=== PATIENT | female | born 2000 | race Caucasian/White ===

== ENCOUNTER 2021-09-20 20:46 | Emergency (ER) | payer SELFPAY ==
[2021-09-20] MEDS ORDERED: methylPREDNISolone Sodium Succinate 125 MG/2 ML SDV IVPUSH ONE (20:57)
[2021-09-20] MEDS ORDERED: Sodium Chloride 0.9% 10 ML Syringe FLUSH PRN (20:57)
[2021-09-20] MEDS ORDERED: diphenhydrAMINE 50 MG/ML SDV IVPUSH ONE (20:57)
[2021-09-20] MEDS ORDERED: Famotidine 20 MG/2 ML SDV IVPUSH ONE (20:57)
--- NOTE | 2021-09-20 21:08 | EDM.PDOC ---
ED HPI GENERAL MEDICAL PROBLEM - General Chief Complaint: Skin Complaint Stated Complaint: SKIN COMPLAINT/HIVES ALL OVER Time Seen by Provider: 09/20/21 20:56 Source of Information: Reports: Patient, RN Notes Reviewed History Limitations: Reports: No Limitations - History of Present Illness INITIAL COMMENTS - FREE TEXT/NARRATIVE: Patient is a 21-year-old female who presents to the ER for evaluation of her hives. Patient states that she has been having issues with this for quite some time, but notes these hives have started about a week and a half ago, and have generally worsened. These are pretty much all over her body surface, not in 1 specific area she notes them to be up on her neck, body, arms, legs. She has not changed any soaps, detergents, perfumes, lotions or otherwise she has not tried any foods that are new to her. States that she has had allergy testing in the past and everything was inconclusive or negative. Patient has been using Tylenol and ibuprofen and cetirizine for management. States that it seems to help a little bit but does not really make them go away. She states when she was at work today, she her throat felt a little bit scratchy, and she was concerned that it might start swelling shot so she comes to the ER for evaluation. Patient is in no respiratory distress at the time of triage and can answer all questions appropriately. Generalized Pain Score (Numeric/FACES): 7 - Related Data Allergies Allergy/AdvReac Type Severity Reaction Status Date / Time No Known Allergies Allergy Verified 09/20/21 20:57 Home Meds: Home Meds predniSONE 20 mg PO ASDIRECTED #15 tab 09/20/21 [Rx] Past Medical History Dermatologic History: Reports: Other (See Below) Other Dermatologic History: intermittent hives- has had allergy testing with negative/inconclusive results. - Infectious Disease History Infectious Disease History: Reports: Novel Coronavirus Social & Family History - Tobacco Use Tobacco Use Status *Q: Current Every Day Tobacco User Years of Tobacco use: 5 Packs/Tins Daily: 1 - Caffeine Use Caffeine Use: Reports: Energy Drinks - Recreational Drug Use Recreational Drug Use: Yes Recreational Drug Type: Reports: Marijuana/Hashish ED ROS GENERAL - Review of Systems Review Of Systems: Comprehensive ROS is negative, except as noted in HPI. ED EXAM, SKIN/RASH Exam: See Below Exam Limited By: No Limitations General Appearance: Alert, WD/WN, No Apparent Distress Throat/Mouth: Normal Inspection, Normal Lips, Normal Teeth, Normal Gums, Normal Oropharynx, Normal Voice, No Airway Compromise Respiratory/Chest: No Respiratory Distress, Lungs Clear, Normal Breath Sounds, No Accessory Muscle Use, Chest Non-Tender Cardiovascular: Normal Peripheral Pulses, Regular Rate, Rhythm, No Edema Peripheral Pulses: 2+: Radial (L), Radial (R) GI/Abdominal: Normal Bowel Sounds, Soft, Non-Tender, No Distention, No Mass Extremities: Normal Range of Motion, Normal Capillary Refill Neurological: Alert, Oriented, Normal Cognition, No Motor/Sensory Deficits Psychiatric: Normal Affect, Normal Mood Skin: Warm, Dry, Intact, Normal Color, Other (Patient has multiple hive-like lesions all over her body. These do not appear to be in any specific areas that would be consistent with detergent irritation or otherwise.) Course - Vital Signs Last Recorded V/S: Last Vital Signs Temp 97.5 F 09/20/21 20:56 Pulse 87 09/20/21 20:56 Resp 18 09/20/21 20:56 BP 112/63 09/20/21 20:56 Pulse Ox 100 09/20/21 20:56 - Orders/Labs/Meds Orders: Active Orders 24 hr Category Date Time Status Peripheral IV Care [RC] . DIRECTED Care 09/20/21 20:57 Ordered Sodium Chloride 0.9% [Saline Flush] Med 09/20/21 20:57 Active 10 ml FLUSH ASDIRECTED PRN Peripheral IV Insertion Adult [OM.PC] Stat Oth 09/20/21 20:57 Ordered Medication Orders Sodium Chloride (Sodium Chloride 0.9% 10 Ml Syringe) 10 ml FLUSH ASDIRECTED PRN PRN Reason: Keep Vein Open Last Admin: 09/20/21 21:14 Dose: 10 ml Documented by: DIANNA Meds: Medications Generic Name Dose Route Start Last Admin Trade Name Freq PRN Reason Stop Dose Admin Sodium Chloride 10 ml 09/20/21 20:57 09/20/21 21:14 Sodium Chloride 0.9% 10 Ml Syringe FLUSH 10 ml ASDIRECTED PRN Administration Keep Vein Open Discontinued Medications Generic Name Dose Route Start Last Admin Trade Name Freq PRN Reason Stop Dose Admin Diphenhydramine HCl 50 mg 09/20/21 20:57 09/20/21 21:15 Diphenhydramine 50 Mg/Ml Sdv IVPUSH 09/20/21 20:58 50 mg ONETIME ONE Administration Famotidine 20 mg 09/20/21 20:57 09/20/21 21:15 Famotidine 20 Mg/2 Ml Sdv IVPUSH 09/20/21 20:58 20 mg ONETIME ONE Administration Methylprednisolone Sodium Succinate 125 mg 09/20/21 20:57 09/20/21 21:14 Methylprednisolone Sodium Succinate 125 Mg/2 Ml Sdv IVPUSH 09/20/21 20:58 125 mg ONETIME ONE Administration - Re-Assessments/Exams Free Text/Narrative Re-Assessment/Exam: 09/20/21 21:07 Patient presents to the ER for evaluation of her all of her skin hives. We will go ahead and give her Solu-Medrol, Benadryl and famotidine for initial management. Since this is kind of an ongoing/chronic issue; We will likely send her home with a course of steroids for ongoing management if she seems to respond well to the medications given tonight. 09/20/21 21:50 Patient was reassessed at bedside, and states she is feeling much better and would like to go home. We will send her home with a prescription for prednisone and have her follow-up with her regular care provider if symptoms do not seem to be improving. Departure - Departure Time of Disposition: 21:51 Disposition: Home, Self-Care 01 Condition: Good Clinical Impression: Hives - Discharge Information *PRESCRIPTION DRUG MONITORING PROGRAM REVIEWED*: No *COPY OF PRESCRIPTION DRUG MONITORING REPORT IN PATIENT BAHMAN: No Prescriptions: predniSONE 20 mg PO ASDIRECTED #15 tab Instructions: Hives, [id number] Referrals: PCP,Not In Area [Primary Care Provider] - Forms: ED Department Discharge Additional Instructions: You were seen in the ER today for your hives. You were given some IV medications to help relieve these symptoms, this seemed to work well for you. This included IV steroids, IV Pepcid, and IV Benadryl. You will be started on a steroid burst, please take as directed until gone. This medication was electronically sent to the [facility] located near [facility]. You may take Benadryl 25 mg every 4 hours as needed for further symptomatic relief, along with Pepcid 20 mg twice daily when you are taking the prednisone. You may also continue to use your cetirizine for ongoing management. Please return to the ER at any time if your symptoms change or worsen. Sepsis Event Note (ED) - Focused Exam Vital Signs: Vital Signs Temp Pulse Resp BP Pulse Ox 09/20/21 20:56 97.5 F 87 18 112/63 100 - My Orders Last 24 Hours: My Active Orders 09/20/21 20:57 Peripheral IV Care [RC] . DIRECTED Sodium Chloride 0.9% [Saline Flush] 10 ml FLUSH ASDIRECTED PRN Peripheral IV Insertion Adult [OM.PC] Stat - Assessment/Plan Last 24 Hours: My Active Orders 09/20/21 20:57 Peripheral IV Care [RC] . DIRECTED Sodium Chloride 0.9% [Saline Flush] 10 ml FLUSH ASDIRECTED PRN Peripheral IV Insertion Adult [OM.PC] Stat
== END 2021-09-20 22:56 | disposition home or self-care (01) ==
LOC: JD.ED 20:46
DX: L50.9 Urticaria, unspecified (principal); Z72.0 Tobacco use; Z86.16 Personal history of COVID-19
CPT/HCPCS: 96374; 96375; 99283; J1200; J2930; J3490

== ENCOUNTER 2021-09-21 19:59 | Emergency (ER) | payer SELFPAY ==
[2021-09-21] MEDS ORDERED: predniSONE 10 MG Tab PO ONE (20:33)
[2021-09-21] MEDS ORDERED: diphenhydrAMINE 50 MG/ML SDV IM ONE (20:33)
--- NOTE | 2021-09-21 20:35 | EDM.PDOC ---
ED HPI GENERAL MEDICAL PROBLEM - General Chief Complaint: Skin Complaint Stated Complaint: SKIN COMPLAINT/HIVES ALL OVER Time Seen by Provider: 09/21/21 20:20 Source of Information: Reports: Patient, Family History Limitations: Reports: No Limitations - History of Present Illness INITIAL COMMENTS - FREE TEXT/NARRATIVE: Patient is a 21-year-old female with a history of chronic, recurrent hives presenting with a chief complaint of hives. She states she has had them on and off for the past several years. There is not any associated trigger. She has seen several video poker floorman in the past. She has tried several different treatments including Xolair injections. Patient states she had recurrence of hives over the past few days. She was seen in the emergency room with symptoms last night. She states the symptoms returned today but have improved. She currently denies any tongue swelling, throat discomfort, difficulty breathing, abdominal pain, vomiting. She recently moved up from [place] and was establishing care in the area. Treatments ADOPTION WORKER: Reports: Other (see below) Other Treatments ADOPTION WORKER: steroids, benadryl - Related Data Allergies Allergy/AdvReac Type Severity Reaction Status Date / Time No Known Allergies Allergy Verified 09/21/21 20:12 Home Meds: Home Meds predniSONE 15 mg PO DAILY 09/21/21 [History] predniSONE See Taper PO DAILY #15 tab 09/21/21 [Rx] Past Medical History - Past Health History Medical/Surgical History: Denies Medical/Surgical History Dermatologic History: Reports: Other (See Below) Other Dermatologic History: intermittent hives- has had allergy testing with negative/inconclusive results. - Infectious Disease History Infectious Disease History: Reports: Novel Coronavirus Social & Family History - Tobacco Use Tobacco Use Status *Q: Current Every Day Tobacco User Years of Tobacco use: 5 Packs/Tins Daily: 0.5 - Caffeine Use Caffeine Use: Reports: Energy Drinks - Recreational Drug Use Recreational Drug Use: Yes Drug Use in Last 12 Months: Yes Recreational Drug Type: Reports: Marijuana/Hashish Recreational Drug Use Frequency: Weekly ED ROS GENERAL - Review of Systems Review Of Systems: See Below Free Text/Narrative/Comment: In addition to that documented in the HPI above, the additional ROS was obtained: Constitutional: Denies fevers or chills Eyes: Denies vision changes ENMT: Denies sore throat CV: Denies chest pain Resp: Denies SOB GI: Denies vomiting or diarrhea : Denies painful urination MSK: Denies recent trauma Skin: Per HPI Neuro: Denies new numbness or tingling or weakness Endocrine: Denies unexpected weight loss Heme: Denies bleeding disorders ED EXAM, SKIN/RASH Exam: See Below Text/Narrative:: I have reviewed the triage vital signs Const: Well nourished, well developed, appears stated age Eyes: Pupils Equal and reactive to light bilaterally, no conjunctival injection. No tongue swelling. No lip swelling. HENT: No signs of trauma or swelling, Neck supple without meningismus CV: Regular Rate Rhythm, Warm, well-perfused extremities RESP: Unlabored respiratory effort GI: soft, non-tender, non-distended, no masses MSK: No gross deformities appreciated Skin: Diffuse urticaria noted on upper extremities, torso and face. Neuro: Alert, liner helper II-XII grossly intact. Sensation and motor function of extremities grossly intact. Psych: Appropriate mood and affect. Course - Vital Signs Last Recorded V/S: Last Vital Signs Temp 37.1 C 09/21/21 20:13 Pulse 91 09/21/21 20:13 Resp 16 09/21/21 20:13 BP 126/70 09/21/21 20:13 Pulse Ox 100 09/21/21 20:13 - Orders/Labs/Meds Meds: Medications Discontinued Medications Generic Name Dose Route Start Last Admin Trade Name Kirsten PRN Reason Stop Dose Admin Diphenhydramine HCl 25 mg 09/21/21 20:33 09/21/21 20:54 Diphenhydramine 50 Mg/Ml Sdv IM 09/21/21 20:34 25 mg ONETIME ONE Administration Prednisone 10 mg 09/21/21 20:33 09/21/21 20:54 Prednisone 10 Mg Tab PO 09/21/21 20:34 10 mg ONETIME ONE Administration Departure - Departure Time of Disposition: 20:34 Disposition: Home, Self-Care 01 Clinical Impression: Hives - Discharge Information Prescriptions: predniSONE See Taper PO DAILY #15 tab Instructions: Hives Referrals: PCP,Not In Area [Primary Care Provider] - Forms: ED Department Discharge Additional Instructions: Please follow-up with a video poker floorman as soon as possible. I recommend 25 mg of Benadryl every 8 hours for the next several days. In addition, we will switch you to a prednisone taper. Sepsis Event Note (ED) - Evaluation Sepsis Screening Result: No Definite Risk - Focused Exam Vital Signs: Vital Signs Temp Pulse Resp BP Pulse Ox 09/21/21 20:13 37.1 C 91 16 126/70 100 09/21/21 20:06 37.1 C 97 16 100 - Assessment/Plan Assessment:: Patient is 21-year-old female presenting with diffuse urticaria. Likely diagnosis of chronic idiopathic urticaria. No evidence of anaphylaxis. Patient given prednisone taper instead of daily prednisone for 10 days. Recommended every 8 hour Benadryl. No other treatment indicated at this time. Recommended follow-up with video poker floorman. Return precautions discussed as usual. Patient agrees with plan of care.
== END 2021-09-21 20:58 | disposition home or self-care (01) ==
LOC: JD.ED 19:59
DX: L50.9 Urticaria, unspecified (principal); Z72.0 Tobacco use
CPT/HCPCS: 96372; 99283; J1200; J7512

== ENCOUNTER 2021-12-01 11:53 | Emergency (ER) | payer SELFPAY ==
[2021-12-01 14:05] LABS: ACETAMINOPHEN 0 ug/mL (10-30)
== END 2021-12-01 18:00 ==
LOC: JD.ED 11:53
DX: F32.89 Other specified depressive episodes (principal); Z72.0 Tobacco use; Z20.822 Contact with and (suspected) exposure to COVID-19
CPT/HCPCS: 36415; 80053; 80143; 80179; 80306; 80307; 81025; 84443; 85025; 99285; U0002

== ENCOUNTER 2022-01-17 15:21 | Emergency (ER) | payer SELFPAY ==
[2022-01-17 16:25] LABS: CORONAVIRUS COVID-19 NAA NEGATIVE (NEGATIVE)
[2022-01-17 16:37] LABS: ACETAMINOPHEN 13 ug/mL (10-30)
== END 2022-01-17 17:40 ==
LOC: JD.ED 15:21
DX: F39 Unspecified mood [affective] disorder (principal); F10.10 Alcohol abuse, uncomplicated; Z20.822 Contact with and (suspected) exposure to COVID-19
CPT/HCPCS: 0240U; 36415; 80053; 80143; 80179; 80306; 80307; 81003; 81025; 83735; 84443; 85025; 93005; 99285; 93010; 99284

== ENCOUNTER 2022-05-02 10:05 | Day surgery (SDC) | payer SELFPAY ==
[2022-05-02] MEDS ORDERED: Sodium Chloride 0.9% 1,000 ML IV ONE (12:13)
[2022-05-02] MEDS ORDERED: Ondansetron 4 MG/2 ML SDV IVPUSH ONE (12:13)
[2022-05-02] MEDS ORDERED: Sodium Chloride 0.9% 10 ML Syringe FLUSH PRN (12:13)
[2022-05-02] MEDS ORDERED: HYDROmorphone 0.5 MG/0.5 ML Syringe IVPUSH ONE (12:18)
[2022-05-02 13:03] LABS: ESTIMATED GFR 107 mL/min (>60)
[2022-05-02] MEDS ORDERED: Iopamidol 612 MG/ML 100 ML Bottle IVPUSH ONE (13:28)
[2022-05-02] MEDS ORDERED: Sodium Chloride 0.9% 10 ML Syringe FLUSH ONE (13:28)
[2022-05-02] MEDS ORDERED: Sodium Chloride 0.9% 100 ML IV SCH (13:30)
[2022-05-02] MEDS ORDERED: cefOXitin 2 GM in Premix Bag 1 BAG IV ONE (14:32)
[2022-05-02] MEDS ORDERED: Lidocaine 1% 5 ML VIAL ONE (14:41)
[2022-05-02] MEDS ORDERED: Rocuronium 50 MG/5 ML Vial ONE (14:41)
[2022-05-02] MEDS ORDERED: Ondansetron 4 MG/2 ML SDV ONE (14:41)
[2022-05-02] MEDS ORDERED: fentaNYL 250 MCG/5 ML SDV ONE (14:41)
[2022-05-02] MEDS ORDERED: Midazolam 1 MG/ML 2 ML SDV ONE (14:41)
[2022-05-02] MEDS ORDERED: Propofol 200 MG/20 ML SDV ONE (14:41)
[2022-05-02] MEDS ORDERED: Dexamethasone 4 MG/ML 5 ML MDV ONE (14:43)
[2022-05-02] MEDS ORDERED: Bupivacaine 0.5%/EPINEPHrine 1:200,000 50 ML MDV ONE (14:44)
[2022-05-02] MEDS ORDERED: Succinylcholine 200 MG/10 ML MDV ONE (14:45)
[2022-05-02] MEDS ORDERED: Lactated Ringers 1,000 ML IV SCH (14:45)
[2022-05-02] MEDS ORDERED: fentaNYL 100 MCG/2 ML SDV IVPUSH PRN (15:16)
[2022-05-02] MEDS ORDERED: Ondansetron 4 MG/2 ML SDV IVPUSH PRN (15:16)
[2022-05-02] MEDS ORDERED: HYDROmorphone 0.5 MG/0.5 ML Syringe IVPUSH PRN (15:16)
[2022-05-02] MEDS ORDERED: Neostigmine Methylsulfate 10 MG/10 ML MDV ONE (15:21)
[2022-05-02] MEDS ORDERED: Ketorolac 30 MG/ML SDV ONE (15:47)
== END 2022-05-02 17:23 | disposition home or self-care (01) ==
LOC: JD.ED 10:05 → JD.SDS 14:37
PROVIDERS: ATTEND Surgery
DX: K35.30 Acute appendicitis with localized peritonitis, without perforation or gangrene (principal); F41.9 Anxiety disorder, unspecified; F32.A Depression, unspecified; F17.210 Nicotine dependence, cigarettes, uncomplicated; Z86.19 Personal history of other infectious and parasitic diseases; Z79.2 Long term (current) use of antibiotics; Z79.899 Other long term (current) drug therapy; Z79.891 Long term (current) use of opiate analgesic; Z79.83 Long term (current) use of bisphosphonates
CPT/HCPCS: 36415; 44970; 74177; 80053; 83735; 84703; 85025; 86140; 96361; 96374; 96375; 99285; J0330; J0694; J1100; J1170; J1885; J2250; J2405; J2704; J2710; J3010; J3490; J7030; J7120; Q9967; 00840; 99140; 99284

== ENCOUNTER 2022-11-25 12:33 | Emergency (ER) | payer OTHER ==
[2022-11-25] MEDS ORDERED: Bupivacaine 0.5% 10 ML SDV INJECT ONE (13:31)
[2022-11-25] MEDS ORDERED: Lidocaine 1% 10 ML MDV INJECT ONE (13:31)
== END 2022-11-25 14:18 | disposition home or self-care (01) ==
LOC: JD.ED 12:33
DX: S61.112A Laceration without foreign body of left thumb with damage to nail, initial encounter (principal); W26.0XXA Contact with knife, initial encounter
CPT/HCPCS: 12001; 99282; J3490; 99283

== ENCOUNTER 2023-01-29 13:13 | Emergency (ER) | payer SELFPAY | END 2023-01-29 16:10 | disposition home or self-care (01) | LOC: JD.ED 13:13 | DX: S62.340A Nondisplaced fracture of base of second metacarpal bone, right hand, initial encounter for closed fracture (principal); F17.210 Nicotine dependence, cigarettes, uncomplicated; Z86.16 Personal history of COVID-19; W22.8XXA Striking against or struck by other objects, initial encounter | CPT/HCPCS: 73110-26-RT; 73110-RT; 73120-26-RT; 73120-RT; 99283 ==